=== PATIENT | male | born 1980 | race Caucasian/White ===

== ENCOUNTER 2017-01-25 22:20 | Emergency (ER) | payer BC ==
[~2017-01-25] VITALS: Ht 193 cm; Wt 106.8 kg
[~2017-01-25 22:20] MED LIST: NO HOME MEDICATIONS
[2017-01-25 22:22] VITALS: TEMP 97.6
[2017-01-25 23:21] LABS: BASO # 0.1 (0.0-0.2); BASO % 0.5 % (0.0-2.0); EOS # 0.2 (0.0-0.7); EOS % 1.8 % (0-4.0); GRAN # 9.1 (1.4-6.5); GRAN % 72.6 % (42.2-75.2); HEMATOCRIT 43.4 % (42.0-52.0); LYMPH # 2.5 (1.2-3.4); LYMPH % 19.7 % (20.0-51.0); MEAN CELL VOLUME 88 fl (80.0-100.0); MEAN CORPUSCULAR HEMOGLOBIN 31 pg (27.0-31.0); MEAN CORPUSCULAR HGB CONC 35 g/dl (33.0-37.0); MEAN PLATELET VOLUME 10.5 fl (7.4-10.4); MONO # 0.6 (0.1-0.6); MONO % 4.9 % (1.7-9.3); PLATELET COUNT 248 K/mm3 (130-400); RED BLOOD COUNT 4.92 M/mm3 (4.20-5.60); REDCELL DISTRIBUTION WIDTH-CV 12.5 % (11.5-14.5); WHITE BLOOD COUNT 12.5 K/mm3 (4.8-10.8)
[2017-01-25 23:35] LABS: ALBUMIN 4.7 gm/dL (3.5-5.0); BILIRUBIN,TOTAL 0.6 mg/dL (0.0-1.0); C-REACTIVE PROTEIN 0.7 mg/dL (0.0-0.9); CALCIUM 9.6 mg/dL (8.4-10.2); CREATININE, serum 1.16 mg/dL (0.66-1.25); POTASSIUM 3.4 mmol/L (3.4-5.0); TOTAL PROTEIN 7.6 gm/dL (6.4-8.2)
[2017-01-25 23:42] LABS: PH 8 (5-8); SQUAMOUS EPITHELIAL None Seen /hpf; URINE APPEARANCE Cloudy; URINE BACTERIA None Seen /hpf; URINE BILIRUBIN Negative (NEGATIVE); URINE BLOOD Negative (NEGATIVE); URINE COLOR Yellow; URINE GLUCOSE Negative (NEGATIVE); URINE KETONE 1+ (NEGATIVE); URINE WBC None Seen /hpf
[2017-01-26] MEDS ORDERED: NORCO 325 MG-51 TAB PO (00:27)
[2017-01-26] MEDS ORDERED: ZOFRAN 4MG T4 MG/TAB PO (00:27)
[2017-01-26 00:51] VITALS: BP 151/95; PULSE 86
== END 2017-01-26 00:53 | disposition home or self-care (01) ==
LOC: COL.ER 22:20
PROVIDERS: Emergency Medicine
DX: R10.31 Right lower quadrant pain (principal); N13.2 Hydronephrosis with renal and ureteral calculous obstruction; R93.8 Abnormal findings on diagnostic imaging of other specified body structures
CPT/HCPCS: J1170; J2405; J7030